=== PATIENT | female | born 1960 | race Caucasian/White ===

== ENCOUNTER 2018-01-24 08:50 | Emergency (ER) | payer BC ==
[~2018-01-24] VITALS: Ht 167.6 cm; Wt 78.3 kg
[~2018-01-24 08:50] MED LIST: ALPRAZOLAM0.25 MG PO; CELEBREX200 MG PO; LOPRESSOR100 MG PO; SKELAXIN400 M1 PO; VICODIN,LORT1 TABLET PO
[2018-01-24 09:44] LABS: HEMATOCRIT 45.9 % (36.0-46.0); HEMOGLOBIN 15.6 G/DL (11.9-15.5); MCH 29.5 PG (29.0-34.0); MCV 86.9 FL (83-99); PLATELET COUNT 246 K/uL (156-360); RBC DIS.WIDTH-CV 13.2 % (11.8-14.6); RBC DIS.WIDTH-SD 41.3 % (39-53); RED BLOOD COUNT 5.28 M/uL (3.80-5.20); WHITE BLOOD COUNT 15.5 K/uL (4.1-10.2)
[2018-01-24 10:12] LABS: CHLORIDE 108 mEq/L (99-109); POTASSIUM 3.9 mEq/L (3.7-5.4); SODIUM 142 mEq/L (136-147)
[2018-01-24 10:13] LABS: GLUCOSE 113 mg/dL (70-99)
[2018-01-24 10:17] LABS: CREATININE 0.8 mg/dL (0.6-1.3); GFR ESTIMATE (CALCULATED) > 59 mL/min/
[2018-01-24 10:18] LABS: UREA NITROGEN (BUN) 12 mg/dL (9-23)
[2018-01-24 10:19] LABS: TROP-I INTERPRETATION NEGATIVE; TROPONIN-I 0.03 ng/mL (0.0-0.30)
[2018-01-24 12:54] VITALS: BP 176/96
== END 2018-01-24 12:59 | disposition home or self-care (01) ==
LOC: EME 08:50
PROVIDERS: Family Medicine
DX: R00.2 Palpitations (principal); I10 Essential (primary) hypertension; F17.200 Nicotine dependence, unspecified, uncomplicated; F41.9 Anxiety disorder, unspecified
CPT/HCPCS: 71046; 80048; 84484; 85027; 93005; 99281; 99284